=== PATIENT | female | born 1995 | race Caucasian/White ===

== ENCOUNTER 2021-02-13 05:26 | Emergency (ER) | payer SELFPAY ==
[~2021-02-13] VITALS: Ht 157.5 cm; Wt 49.0 kg
--- NOTE | 2021-02-13 05:56 | PHYS DOC ---
General Adult EDM: Chief Complaint: NAUSEA/VOMITING/DIARRHEA HPI: HPI: 25-year-old female presents with vomiting. She woke up at 1 AM with vomiting. She has not had any diarrhea. She has had some chills and a low-grade fever up to 100.3. Patient is unable to keep anything down so she came in the emergency room. The patient also states trying to get but has been unsuccessful recently. Her last menstrual cycle was the beginning of January. She would like a test. She has no other complaints this time. (ADONIS RIDER DO) Review of Systems: Review of Systems: Constitutional: Denies fever or chills Eyes: Denies change in visual acuity HENT: Denies nasal congestion or sore throat Respiratory: Denies cough or shortness of breath Cardiovascular: Denies chest pain or edema GI: nausea, vomiting. Denies abdominal pain, bloody stools or diarrhea : Denies dysuria Musculoskeletal: Denies back pain or joint pain Integument: Denies rash Neurologic: Denies headache, focal weakness or sensory changes Endocrine: Denies polyuria or polydipsia Lymphatic: Denies swollen glands Psychiatric: Denies depression or anxiety (ADONIS RIDER DO) Current Medications: Current Meds: Current Medications Medications (Trade) Dose Ordered Sig/Lisset Start Time Stop Time Status Last Admin Dose Admin Ondansetron HCl (Zofran) 4 mg 1X ONCE 02/13/21 06:00 02/13/21 06:01 Sodium Chloride 1,000 ml @ 1,000 mls/hr 1X ONCE 02/13/21 06:00 02/13/21 06:59 (ADONIS RIDER DO) Allergies: Allergies: Allergies Coded Allergies Type Severity Reaction Last Updated Verified Penicillins Allergy Severe Hives 02/13/21 Yes amoxicillin Allergy Severe Hives 02/13/21 Yes azithromycin Allergy Severe 02/13/21 Yes shellfish derived Allergy Unknown Hives 02/13/21 Yes (ADONIS RIDER DO) Physical Exam: PE: Constitutional: Well developed, well nourished, no acute distress, non-toxic appearance. [] HENT: Normocephalic, atraumatic, bilateral external ears normal, oropharynx moist, no oral exudates, nose normal. [] Eyes: PERRLA, EOMI, conjunctiva normal, no discharge. [] Neck: Normal range of motion, no tenderness, supple, no stridor. [] Cardiovascular: Heart rate regular rhythm, no murmur [] Lungs & Thorax: Bilateral breath sounds clear to auscultation [] Abdomen: Bowel sounds normal, soft, no tenderness, no masses, no pulsatile masses. [] Skin: Warm, dry, no erythema, no rash. [] Back: No tenderness, no CVA tenderness. [] Extremities: No tenderness, no cyanosis, no clubbing, ROM intact, no edema. [] Neurologic: Alert and oriented X 3, normal motor function, normal sensory function, no focal deficits noted. [] Psychologic: Affect normal, judgement normal, mood normal. [] (ADONIS RIDER DO) Current Patient Data: Labs: Laboratory Tests Test 02/13/21 06:00 White Blood Count 10.9 x10^3/uL Red Blood Count 4.59 x10^6/uL Hemoglobin 14.4 g/dL Hematocrit 42.5 % Mean Corpuscular Volume 93 fL Mean Corpuscular Hemoglobin 31 pg Mean Corpuscular Hemoglobin Concent 34 g/dL Red Cell Distribution Width 12.7 % Platelet Count 238 x10^3/uL Neutrophils (%) (Auto) 84 % Lymphocytes (%) (Auto) 9 % Monocytes (%) (Auto) 7 % Eosinophils (%) (Auto) 0 % Basophils (%) (Auto) 0 % Neutrophils # (Auto) 9.2 x10^3uL Lymphocytes # (Auto) 0.9 x10^3/uL Monocytes # (Auto) 0.8 x10^3/uL Eosinophils # (Auto) 0.0 x10^3/uL Basophils # (Auto) 0.0 x10^3/uL Maternal Serum HCG Beta Subunit < 1 mIU/mL Sodium Level 142 mmol/L Potassium Level 3.5 mmol/L Chloride Level 107 mmol/L Carbon Dioxide Level 26 mmol/L Anion Gap 9 Blood Urea Nitrogen 7 mg/dL Creatinine 0.5 mg/dL Estimated GFR (Cockcroft-Gault) 149.1 BUN/Creatinine Ratio 14 Glucose Level 111 mg/dL Calcium Level 8.6 mg/dL Total Bilirubin 0.4 mg/dL Aspartate Amino Transf (AST/SGOT) 12 U/L Alanine Aminotransferase (ALT/SGPT) 28 U/L Alkaline Phosphatase 55 U/L Total Protein 7.1 g/dL Albumin 4.1 g/dL Albumin/Globulin Ratio 1.4 Current Medications Medications (Trade) Dose Ordered Sig/Lisset Route PRN Reason Start Time Stop Time Status Last Admin Dose Admin Sodium Chloride 1,000 ml @ 1,000 mls/hr 1X ONCE IV 02/13/21 06:00 02/13/21 07:00 DC 02/13/21 06:11 Ondansetron HCl (Zofran) 4 mg 1X ONCE IVP 02/13/21 06:00 02/13/21 06:01 DC 02/13/21 06:10 Vital Signs: Vital Signs Date Time Temp Pulse Resp B/P (MAP) Pulse Ox O2 Delivery O2 Flow Rate FiO2 02/13/21 05:26 98.2 120 18 118/70 (86) 98 Room Air Vital Signs Date Time Temp Pulse Resp B/P (MAP) Pulse Ox O2 Delivery O2 Flow Rate FiO2 02/13/21 07:03 93 16 104/58 (73) 98 Room Air 02/13/21 05:26 98.2 (ERICK TERAN DO) EKG: EKG: [] (ADONIS RIDER DO) Radiology/Procedures: Radiology/Procedures: [] (ADONIS RIDER DO) Heart Score: C/O Chest Pain: N/A Risk Factors: Risk Factors: DM, Current or recent (<one month) smoker, HTN, HLP, family history of CAD, obesity. Risk Scores: Score 0 - 3: 2.5% MACE over next 6 weeks - Discharge Home Score 4 - 6: 20.3% MACE over next 6 weeks - Admit for Clinical Observation Score 7 - 10: 72.7% MACE over next 6 weeks - Early Invasive Strategies (ADONIS RIDER DO) C/O Chest Pain: No (ERICK TERAN DO) Course & Med Decision Making: Course & Med Decision Making Pertinent Labs and Imaging studies reviewed. (See chart for details) The patient's work-up is pending. I am signing the patient out to Dr. Teran at 0600. [] (ADONIS RIDER DO) Course & Med Decision Making I assumed complete care of patient after comprehensive signout from off going physician Patient responded to IV fluid and antinausea medication administered with complete resolution in symptoms I reviewed patient work-up and repeated certain aspects of history and physical exam. Etiology of patient's symptoms unknown but patient does admit to recent self- limiting illness similar to presenting symptoms among family members and also disclosed eating wings and [employer] yesterday for dinner Reviewed potential concerning diagnoses beyond a self-limiting gastroenteritis but all less likely given patient presentation and work-up. Continued supportive care practices advised with new prescription for Zofran on discharge home Despite patient being vaccinated I recommended COVID-19 testing but patient deferred (ERICK TERAN DO) Dragon Disclaimer: Dragon Disclaimer: This electronic medical record was generated, in whole or in part, using a voice recognition dictation system. (ADONIS RIDER DO) Departure Departure: Impression: Primary Impression: Nausea & vomiting Disposition: HOME / SELF CARE / HOMELESS Condition: STABLE Referrals: PCP,ELISA (PCP) Patient Instructions: Nausea and Vomiting Additional Instructions: You were seen for nausea and vomiting. You most likely have a viral illness which should resolve in the next few days to a week. Your symptoms improved with IV fluid and IV antinausea medication. Subsequent prescription for said antinausea medication given to you on ER departure. You should return to the ED if you develop abdominal pain, fever > 100.3, black/bloody stools, black/bloody vomiting, cannot keep water down, or any other new or concerning symptoms. Scripts Ondansetron (ONDANSETRON ODT) 4 Mg Tab.rapdis 1 TAB PO PRN Q6-8HRS for nausea, #16 TAB Prov: ERICK TERAN DO 02/13/21 ADONIS RIDER DO Feb 13, 2021 05:56 ERICK TERAN DO Feb 13, 2021 07:12
[2021-02-13] MEDS ORDERED: IV NORMAL SALINE 1,000ML 1,000 ML IV ONE (06:00)
[2021-02-13] MEDS ORDERED: ONDANSETRON PF 4 MG/2 ML VIAL. IVP ONE (06:00)
[2021-02-13 06:23] LABS: BASO % 0 % (0-3); EOS % 0 % (0-3); HEMATOCRIT 42.5 % (36.0-47.0); HEMOGLOBIN 14.4 g/dL (12.0-15.5); LYMPH # 0.9 x10^3/uL (1.0-4.8); LYMPH % 9 % (24-48); MEAN CORPUSCULAR HEMOGLOBIN 31 pg (25-35); MEAN CORPUSCULAR HGB CONC 34 g/dL (31-37); MEAN CORPUSCULAR VOLUME 93 fL (79-100); MONO # 0.8 x10^3/uL (0.0-1.1); MONO % 7 % (0-9); NEUT # 9.2 x10^3uL (1.8-7.7); NEUT % 84 % (31-73); PLATELET COUNT 238 x10^3/uL (140-400); RED BLOOD COUNT 4.59 x10^6/uL (3.50-5.40); RED CELL DISTRIBUTION WIDTH 12.7 % (11.5-14.5); WHITE BLOOD COUNT 10.9 x10^3/uL (4.0-11.0)
[2021-02-13 06:31] LABS: CALCIUM 8.6 mg/dL (8.5-10.1); CREATININE 0.5 mg/dL (0.6-1.0); GFR 149.1; POTASSIUM 3.5 mmol/L (3.5-5.1)
[2021-02-13 06:37] LABS: ALBUMIN 4.1 g/dL (3.4-5.0); ALBUMIN/GLOBULIN RATIO 1.4 (1.0-1.7); TOTAL BILIRUBIN 0.4 mg/dL (0.2-1.0); TOTAL PROTEIN 7.1 g/dL (6.4-8.2)
[2021-02-13 07:03] VITALS: BP 104/58
[2021-02-13] MEDS ORDERED: ONDA4TAB12 PO (07:11)
== END 2021-02-13 07:19 | disposition home or self-care (01) ==
LOC: ER 05:26
DX: R11.2 Nausea with vomiting, unspecified (principal); R50.9 Fever, unspecified; Z88.0 Allergy status to penicillin; Z88.1 Allergy status to other antibiotic agents; Z91.013 Allergy to seafood
CPT/HCPCS: 36415; 80053; 84702; 85025; 96361; 96374; 99283; J2405; J7030

== ENCOUNTER 2021-04-29 11:04 | Emergency (ER) | payer MEDICAID ==
[~2021-04-29] VITALS: Ht 157.5 cm; Wt 49.0 kg
[~2021-04-29 11:04] MED LIST: ONDA4TAB12 PO
[2021-04-29 11:27] VITALS: BP 125/79
[2021-04-29] MEDS ORDERED: DIPHTH,PERTUSS(ACELL),TET TOX 0.5 ML DISP.SYRIN. VAX IM ONE (11:45)
[2021-04-29] MEDS ORDERED: ACETAMINOPHEN 500 MG TABLET PO ONE (11:45)
--- NOTE | 2021-04-29 11:53 | PHYS DOC ---
Past History Past Medical History: No Pertinent History Past Surgical History: , Other Additional Past Surgical Histo: LEFT OVERY AND TUBE Alcohol Use: None General Adult EDM: Chief Complaint: MECHANICAL FALL HPI: HPI: Patient is a 25-year-old female who presents today after a fall. Patient states that she was walking her dog this morning and her dog lurched forward chasing after something and she tripped and fell from a standing position landing on her left knee and her right wrist and her right hip. Patient states she was able to ambulate from the scene and walked home. She states that she has left knee pain with abrasions and right wrist pain with numbness and tingling in her fifth finger. Patient also states that she found out that she is 6 weeks , she is having no vaginal bleeding no vaginal discharge and no abdominal pain at this time. Patient states she follows up with the [facility] here in [place] for all of her OB care. Patient states that her last tetanus shot was over 6 years ago. Review of Systems: Review of Systems: Constitutional: Denies fever or chills Eyes: Denies change in visual acuity HENT: Denies nasal congestion or sore throat Respiratory: Denies cough or shortness of breath Cardiovascular: Denies chest pain or edema GI: Denies abdominal pain, nausea, vomiting, bloody stools or diarrhea : Denies dysuria Musculoskeletal: Right wrist, right hip, left knee pain Integument: Abrasion to right wrist, right hip, and left knee. Neurologic: Denies headache, focal weakness or sensory changes Endocrine: Denies polyuria or polydipsia Lymphatic: Denies swollen glands Psychiatric: Denies depression or anxiety Allergies: Allergies: Allergies Coded Allergies Type Severity Reaction Last Updated Verified Penicillins Allergy Severe Hives 02/13/21 Yes amoxicillin Allergy Severe Hives 02/13/21 Yes azithromycin Allergy Severe 02/13/21 Yes shellfish derived Allergy Intermediate Hives 02/13/21 Yes Physical Exam: PE: Constitutional: Well developed, well nourished, no acute distress, non-toxic appearance. [] HENT: Normocephalic, atraumatic, bilateral external ears normal, oropharynx m oist, no oral exudates, nose normal. [] Eyes: PERRLA, EOMI, conjunctiva normal, no discharge. [] Neck: Normal range of motion, no tenderness, supple, no stridor. [] Cardiovascular:Heart rate regular rhythm, no murmur [] Lungs & Thorax: Bilateral breath sounds clear to auscultation [] Abdomen: Bowel sounds normal, soft, no tenderness, no masses, no pulsatile masses. [] Skin: Warm, dry, no erythema, no rash. [] Back: No tenderness, no CVA tenderness. [] Extremities: No tenderness, no cyanosis, no clubbing, ROM intact, no edema. [] Neurologic: Alert and oriented X 3, normal motor function, normal sensory function, no focal deficits noted. [] Psychologic: Affect normal, judgement normal, mood normal. [] Current Patient Data: Vital Signs: Vital Signs Date Time Temp Pulse Resp B/P (MAP) Pulse Ox O2 Delivery O2 Flow Rate FiO2 04/29/21 11:27 98.5 69 16 125/79 (94) 96 Room Air EKG: EKG: [] Radiology/Procedures: Radiology/Procedures: REASON: fall from standing PROCEDURE: WRIST 3V RIGHT XR RT WRIST 3VIEWS History: Reason: fall from standing / Spl. Instructions: / History: Pain Technique: 3 views right wrist Comparison: None. Findings: No dislocation. No acute fracture. Impression: 1. No acute osseous abnormality. Electronically signed by: Rickey Davidson DO (04/29/2021 12:12 PM) [id number][] REASON: fall from standing scaped knee and wrist PROCEDURE: KNEE LEFT 3V XR KNEE _3 VIEWS_LT History: Reason: fall from standing scaped knee and wrist / Spl. Instructions: / History: Pain Technique: 3 views left knee Comparison: None. Findings: Normal alignment. No acute fracture. No significant knee joint effusion. Impression: 1. No acute osseous abnormality. Electronically signed by: Rickey Davidson DO (04/29/2021 12:17 PM) [id number] Heart Score: C/O Chest Pain: N/A Risk Factors: Risk Factors: DM, Current or recent (<one month) smoker, HTN, HLP, family history of CAD, obesity. Risk Scores: Score 0 - 3: 2.5% MACE over next 6 weeks - Discharge Home Score 4 - 6: 20.3% MACE over next 6 weeks - Admit for Clinical Observation Score 7 - 10: 72.7% MACE over next 6 weeks - Early Invasive Strategies Course & Med Decision Making: Course & Med Decision Making Pertinent Labs and Imaging studies reviewed. (See chart for details) 1225 spoke to patient regarding radiological findings. Did inform her there is nothing acute on the x-rays at this time. Did inform her that her abrasions will be her biggest concern she will need to keep them clean using antibacterial soap and keeping them clean and dry. Patient was instructed to use triple antibiotic ointment for 48 hours only and then discontinue. Tylenol only for pain ice to affected areas for to help with swelling and pain and follow-up with her [employer] for further management. Dragon Disclaimer: Dragon Disclaimer: This electronic medical record was generated, in whole or in part, using a voice recognition dictation system. Departure Departure: Impression: Primary Impression: Fall Qualified Codes: W19.XXXA - Unspecified fall, initial encounter Additional Impressions: Abrasion Contusion Qualified Codes: S80.02XA - Contusion of left knee, initial encounter Disposition: HOME / SELF CARE / HOMELESS Condition: STABLE Referrals: PCP,NO (PCP) Patient Instructions: Abrasions, Contusion, Hand Contusion Additional Instructions: Tylenol as needed for pain Ice to affected areas 20 minutes on 4-5 times daily Keep wounds clean and dry, clean that with antibiotic bacterial so watching for any signs and symptoms of infection which may include redness, increased pain, swelling, or development of a fever. LEVI RODNEY [employer] Apr 29, 2021 11:53
--- NOTE | 2021-04-29 12:15 | RAD ---
XR RT WRIST 3VIEWS History: Reason: fall from standing / Spl. Instructions: / History: Pain Technique: 3 views right wrist Comparison: None. Findings: No dislocation. No acute fracture. Impression: 1. No acute osseous abnormality. Electronically signed by: Rickey Davidson DO (04/29/2021 12:12 PM) [id number]
--- NOTE | 2021-04-29 12:19 | RAD ---
XR KNEE _3 VIEWS_LT History: Reason: fall from standing scaped knee and wrist / Spl. Instructions: / History: Pain Technique: 3 views left knee Comparison: None. Findings: Normal alignment. No acute fracture. No significant knee joint effusion. Impression: 1. No acute osseous abnormality. Electronically signed by: Rickey Davidson DO (04/29/2021 12:17 PM) [id number]
== END 2021-04-29 12:37 | disposition home or self-care (01) ==
LOC: ER 11:04
DX: O26.891 Other specified pregnancy related conditions, first trimester (principal); S80.02XA Contusion of left knee, initial encounter; Z88.0 Allergy status to penicillin; Z88.1 Allergy status to other antibiotic agents; Z3A.01 Less than 8 weeks gestation of pregnancy; W18.09XA Striking against other object with subsequent fall, initial encounter; Y93.01 Activity, walking, marching and hiking; Y92.89 Other specified places as the place of occurrence of the external cause; Y99.8 Other external cause status
CPT/HCPCS: 73110; 73562; 90471; 90715; 99284-25